=== PATIENT | female | born 1980 | race Caucasian/White ===

== ENCOUNTER → 2023-07-29 06:24 | Day surgery (SDC) | payer BC, SELFPAY | LOC: GI 06:24 | PROVIDERS: ATTENDING PHYSICIAN Internal Medicine; FAMILY PHYSICIAN Internal Medicine | DX: Z12.11 Encounter for screening for malignant neoplasm of colon (principal); K29.50 Unspecified chronic gastritis without bleeding | CPT/HCPCS: 43239; G0121; 88305; 88342 ==

== ENCOUNTER 2025-03-15 20:18 | Emergency (ER) | payer BC, SELFPAY ==
[2025-03-15 20:27] VITALS: BP 122/82
[2025-03-15 21:59] VITALS: BMI 24.6
[2025-03-15 22:01] VITALS: BP 133/54
[2025-03-16] MEDS: ADACEL 0.5 ML IM (00:47)
[2025-03-16] MEDS: MOTRIN 600 MG PO (00:48)
--- NOTE | 2025-03-16 01:00 | ED.GENMED ---
History of Present Illness
General
Chief Complaint: Fall
Source: patient and spouse
Exam Limitations: none
Time Seen by Provider: 03/15/25 23:06
Nursing documentation reviewed up to this point in time: agreed with
History of Present Illness
History of Present Illness:
44-year-old female presenting to the emergency department today after a trip and fall few hours prior to arrival. She had a right upper lip did not lose consciousness. She is not on blood thinners. Denies any additional injuries. No numbness
weakness no neck pain.
Past History
Past History
ED Past Medical History: None
ED Past Surgical History: None
Social History
Tobacco: Non-smoker
Living: with family
Review of Systems
Review of Systems
Allergies reviewed?: Yes
All Other Systems: ROS reviewed and negative except as documented in HPI and ROS
Phy Exam
Physical Exam
Physical Exam:
GENERAL: Alert , in no apparent distress
EYE: pupils equal and reactive
NECK: Supple, no significant adenopathy.
ENT: 2.5 cm laceration to the right upper lip does not cross the vermilion border. On the skin above the dry mucous, subcutaneous in depth not a through and through laceration o/p clr, mmm.
CARDIAC: Regular rate and rhythm .
LUNGS: Clear breath sounds bilaterally, no acute respiratory distress, no wheezes/rales/rhonchi
ABDOMEN: Soft, without focal tenderness, no r/g, no cvat
NEUROLOGICAL: Alert and oriented, no focal neuro deficits
SKIN: Warm and dry, skin intact.
MUSCULOSKELETAL: No edema, well perfused.
PSYCH: Normal and appropriate interaction.
Course
Orders/Labs/Results
Orders:
Orders
03/16/25 00:41
Ibuprofen [Motrin] 600 mg PO NOW STA
Tetanus/Diphth/Acelpertussis [Adacel] 0.5 ml IM .ONCE ONE
Vital Signs
Initial and Last Documented VS:
Initial Vital Signs
Temp Pulse Resp BP Pulse Ox
98.2 F 93 18 122/82 97
03/15/25 20:27 03/15/25 20:27 03/15/25 20:27 03/15/25 20:27 03/15/25 20:27
Last Documented Vital Signs
Temp Pulse Resp BP Pulse Ox
98.2 F 93 18 133/54 100
03/15/25 20:27 03/15/25 20:27 03/15/25 20:27 03/15/25 22:01 03/15/25 22:03
Procedures
Laceration Closure
Right Superior Lip:
Status of Wound: clean
Size of Wound in cm: 2.5
Description of Wound Edges: ragged and surrounded by abrasion
Preparation: cleaned with saline
Anesthesia: 1% Lidocaine with epi
Revision/Debridement: routine- no revision
Wound exploration: extensive cleaning of contaminated wound
Type of Closure: single layer closure and interrupted sutures
Skin Closure Material: 6-0 nylon
Number of sutures: 4
MDM/Problems Addressed
MDM/Problems Addressed:
44-year-old female presenting to the emergency department today with concerns of laceration to the right upper lip after a fall she claims that she tripped hit her right upper lip. Did not lose consciousness no numbness weakness nausea vomiting or
additional symptoms otherwise. No neck pain. Laceration was cleaned thoroughly and closed with 4 stitches. Advised 1 week follow-up for suture removal. Return precautions given. Was given an updated tetanus shot.
*Pulse Oximetry
SaO2: 100
Oxygen Mode of Delivery: Room air
Patient hypoxic: no (98)
*Critical Care Note
Total Time (30-74mins, 75-104mins- exclusive of procedures): Not Applicable
ED Attending Note
-
Portions of this chart may have been created with voice recognition software.� Occasional wrong word or��sound alike� substitutions may have occurred due to the inherent limitations of voice recognition software.
Discharge Plan
Departure
Patient Disposition: Home (Routine Discharge)
Date of Disposition: 03/16/25
Time of Disposition: 01:00
Patient with high blood pressure during this ER visit?: No
Condition: Good
Covid-19: Not Applicable
Discharge Problem:
Fall, Laceration of lip
Instructions: Preventing falls in adults
Prescriptions:
No Action
cyclobenzaprine 10 MG tablet
10 mg PO TIDPRN PRN (Reason: muscle spasm) Qty: 20 0RF
hydrocodone-acetaminophen [Vicodin] 1 EACH tablet
1 ea PO QIDPRN PRN (Reason: back pain) Qty: 15 0RF
No Current Medications
Referrals:
Deisy Slade MD [Family Provider, Internal Medicine]
Activity Restrictions/Additional Instructions:
You came to the emergency department today with concerns of a laceration to your upper lip. This was cleaned thoroughly and closed with 4 not dissolving stitches. Please keep the area clean covered and follow-up with your primary care doctor for
suture removal. Return for any worsening, new or concerning symptoms.
Interventions
Interventions:
*Risk Screen - Suicide Last Done: 03/15/25 20:27
*General Assessment Last Done: 03/15/25 21:59
*Neglect/Abuse Screening Last Done: 03/15/25 21:59
*ED COVID-19 Vaccine History Last Done: 03/15/25 21:59
*ED Influenza Vaccine History Last Done: 03/15/25 20:27
[facility] Risk Assessment Tool Last Done: 03/15/25 22:08
ED-Musculoskeletal Assessment Last Done: 03/15/25 21:59
ED- Neurological Assessment Last Done: 03/15/25 21:59
ED-Skin Assessment Last Done: 03/15/25 21:59
Discharge Date and Time
Print Language: BELARUSIAN
== END 2025-03-16 01:13 | disposition home or self-care (01) ==
LOC: EMR 20:18
PROVIDERS: EMERGENCY PHYSICIAN Emergency Medicine; FAMILY PHYSICIAN Internal Medicine
DX: S01.511A Laceration without foreign body of lip, initial encounter (principal); W01.0XXA Fall on same level from slipping, tripping and stumbling without subsequent striking against object, initial encounter; Z23 Encounter for immunization
CPT/HCPCS: 99283; 12011; 90471; 90715